=== PATIENT | female | born 1985 | race Caucasian/White ===

== ENCOUNTER 2016-12-04 08:59 | Emergency (ER) | payer MEDICARE, MEDICAID ==
[2016-12-04 09:17] VITALS: BP 129/88
--- NOTE | 2016-12-04 09:26 | ED.PDOC ---
History of Present Illness - General Chief Complaint: Dental/Mouth Stated Complaint: tooth abcess Time Seen by Provider: 12/04/16 09:25 Source: patient Exam Limitations: no limitations - History of Present Illness Initial Comments: Kenia Hardy 31 y/ female seen today with gum swelling and right facial swellin the last 2 days stated teeth hurting. Also had Taken latuda in dali past for her bipolar disorder and teeth gone bad Timing/Duration: yesterday Severity: moderate EENT Location: dental Prearrival Treatment: no prearrival treatment Presenting Symptoms: pain /swelling gums Improving Factors: eating Worsening Factors: nothing Associated Symptoms: denies symptoms Allergies/Adverse Reactions: Allergies Sulfa Antibiotics Allergy (Unknown, Verified 12/04/16 09:18) Home Medications: Ambulatory Orders ALPRAZolam [Xanax] 0.5 mg PO DAILY PRN 12/04/16 Acetamin W/Cod #3 Tab [Tylenol w/CODEINE #3] 1 ea PO Q4HR PRN #14 tab 12/04/16 Amoxicillin [Amoxil] 1,000 mg PO BID #40 cap 12/04/16 Escitalopram Oxalate [Lexapro] 20 mg PO DAILY 12/04/16 Lamotrigine [Lamictal] 200 mg PO BID 12/04/16 Promethazine Tab [Phenergan Tablet] 25 mg PO Q4HWA PRN #10 tab 12/04/16 Thyroid [Nature-Throid] 5 mg PO DAILY 12/04/16 Ziprasidone HCl [Geodon] 40 mg PO BID 12/04/16 Review of Systems - Review of Systems Constitutional: States: no symptoms reported EENTM: States: see HPI Respiratory: States: no symptoms reported Cardiology: States: no symptoms reported Gastrointestinal/Abdominal: States: no symptoms reported Neurological: States: emotional problems - chronic Past Medical History (General) - Patient Medical History Hx Seizures: No Hx Stroke: No Hx Dementia: No Hx Asthma: No Hx of COPD: No Hx Cardiac Disorders: No Hx Congestive Heart Failure: No Hx Pacemaker: No Hx Hypertension: No Hx Thyroid Disease: Yes Hx Diabetes: No Hx Gastroesophageal Reflux: No Hx Renal Disease: No Hx Cancer: No Hx of HIV: No Hx MRSA: No Hx Other PMH: Yes - bipolar Surgical History: other - ,btl - Vaccination History Hx Tetanus, Diphtheria Vaccination: Yes - 2013 Hx Influenza Vaccination: No Hx Pneumococcal Vaccination: No Immunizations Up to Date: Yes - Social History Hx Tobacco Use: Yes Hx Alcohol Use: No Hx Substance Use: No Hx Substance Use Treatment: No Hx Depression: Yes - bipolar ,anxiety - Female History Patient is a Female of Child Bearing Age (10 -59 yrs old): Yes Family Medical History - Family History Father Family History: Unknown Hx Family Cancer: Yes - dad-leukemia,multiple myeloma Hx Family;Other: ca,dm Physical Exam - Physical Exam General Appearance: Alert, Comfortable, No apparent distress Eye Exam: bilateral normal Ear Exam: bilateral ear: auricle normal, canal normal, TM normal Nasal Exam: normal inspection Throat Exam: pharynx normal, dental tenderness - right upper gum with apical abscess, other - multiple decayed teeth Neck: non-tender, normal inspection, trachea midline Cardiovascular/Respiratory: regular rate, rhythm, no M/R/G, normal peripheral pulses, normal breath sounds Abdominal Exam: non-tender, no organomegaly Neurologic: no motor/sensory deficits Progress - Progress Progress: 12/04/16 09:39 Vital Signs - 8 hr 12/04/16 09:11 Temperature 97.4 F L Pulse Rate [ 101 H Left Brachial] Respiratory 20 Rate Blood Pressure 129/88 [Left Arm] O2 Sat by Pulse 94 L Oximetry Departure - Departure Clinical Impression: Acute pulpitis, Apical alveolar abscess Time of Disposition: 09:43 Disposition: Discharge to Home or Self Care Condition: Fair Departure Forms: ED Discharge - Pt. Copy, Patient Portal Self Enrollment Instructions: Tooth Abscess Diet: other - soft diet until better Referrals: CM BUSCH IV, POLISHER HAND [Primary Care Provider] - 1-2 Weeks Prescriptions: Acetamin W/Cod #3 Tab [Tylenol w/CODEINE #3] 1 ea PO Q4HR PRN #14 tab PRN Reason: Pain Amoxicillin [Amoxil] 1,000 mg PO BID #40 cap Promethazine Tab [Phenergan Tablet] 25 mg PO Q4HWA PRN #10 tab PRN Reason: Nausea Home Medications: Ambulatory Orders ALPRAZolam [Xanax] 0.5 mg PO DAILY PRN 12/04/16 Acetamin W/Cod #3 Tab [Tylenol w/CODEINE #3] 1 ea PO Q4HR PRN #14 tab 12/04/16 Amoxicillin [Amoxil] 1,000 mg PO BID #40 cap 12/04/16 Escitalopram Oxalate [Lexapro] 20 mg PO DAILY 12/04/16 Lamotrigine [Lamictal] 200 mg PO BID 12/04/16 Promethazine Tab [Phenergan Tablet] 25 mg PO Q4HWA PRN #10 tab 12/04/16 Thyroid [Nature-Throid] 5 mg PO DAILY 12/04/16 Ziprasidone HCl [Geodon] 40 mg PO BID 12/04/16 Additional Instructions: Follow up with dentist -choices :[facility] [address] [place] [address] phone [phone]; or/ [facility] please refer to phone directory [facility] patient transport -refer to directory or/july
[2016-12-04] MEDS ORDERED: CLINDAMYCIN PHOSPHATE 150 MG/ML VIAL IM ONE (09:39)
[2016-12-04] MEDS ORDERED: CLINDAMYCIN HCL CAP 150 MG CAP PO ONE (09:39)
[2016-12-04] MEDS ORDERED: PROMETHAZINE HCL INJ 25 MG/ML VIAL IM ONE (09:40)
[2016-12-04] MEDS ORDERED: HYDROcodone 10MG/APAP 325MG 1 EA TAB PO ONE (09:41)
[2016-12-04 10:11] VITALS: TEMP 97.6; O2SAT 95
== END 2016-12-04 10:11 | disposition home or self-care (01) ==
LOC: ER 08:59
DX: K04.7 Periapical abscess without sinus (principal); K04.01 Reversible pulpitis; E07.9 Disorder of thyroid, unspecified; F31.9 Bipolar disorder, unspecified; Z88.2 Allergy status to sulfonamides; Z79.899 Other long term (current) drug therapy; Z87.891 Personal history of nicotine dependence
CPT/HCPCS: J2550; J3490

== ENCOUNTER 2017-04-16 00:18 | Emergency (ER) | payer MEDICARE, MEDICAID ==
[2017-04-16 00:41] VITALS: TEMP 98.6
--- NOTE | 2017-04-16 01:00 | RAD ---
EXAM DESCRIPTION: Foot,Left 3 Views CLINICAL HISTORY: 31 years, Female, left lat distal foot pain COMPARISON: None. FINDINGS: There is an oblique comminuted fracture of the distal fifth metatarsal. There is no evidence of articular extension. There is no additional fracture or dislocation. There is soft tissue swelling overlying the fracture. There is no joint effusion. The tarsal, metatarsal, and phalangeal bones are normal in appearance. The intertarsal, tarsometatarsal, metatarsophalangeal, and interphalangeal joints are grossly normal. IMPRESSION: Oblique comminuted fracture of the distal fifth metacarpal with soft tissue swelling. Electronically signed by: Ozzy Lee MD 04/16/2017 12:59 AM [facility] Workstation: [facility] [employer]
[2017-04-16] MEDS ORDERED: HYDROcodone 7.5MG/APAP 325MG 1 EA TAB PO ONE (01:08)
--- NOTE | 2017-04-16 01:16 | ED.PDOC ---
History of Present Illness - General Chief Complaint: Lower Extremity Injury Stated Complaint: fell down stairs and hurt left foot Time Seen by Provider: 04/16/17 00:41 Source: patient Exam Limitations: no limitations - History of Present Illness Initial Comments: The patient is a 31-year-old female presenting secondary to pain in her left lateral distal foot after falling down 3 steps at home. The patient has swelling over the distal fifth metatarsal and some bruising. There is no laceration. Opening and closing the toe appears show good distal alignment. She appears to be neurovascularly intact. Timing/Duration: 1/2 hour Severity: moderate Improving Factors: nothing Worsening Factors: movement Associated Symptoms: denies symptoms Allergies/Adverse Reactions: Allergies Sulfa Antibiotics Allergy (Unknown, Verified 04/16/17 00:36) Home Medications: Ambulatory Orders ALPRAZolam [Xanax] 2 mg PO DAILY PRN 12/04/16 Escitalopram Oxalate [Lexapro] 80 mg PO DAILY 12/04/16 Lamotrigine [Lamictal] 200 mg PO BID 12/04/16 Ziprasidone HCl [Geodon] 80 mg PO BID 12/04/16 Eszopiclone [Lunesta] 3 mg PO BEDTIME PRN 04/16/17 Liothyronine Sodium [Cytomel] 25 mcg PO AC 04/16/17 Tramadol HCl [Ultram] 50 mg PO Q8HR PRN #30 tab 04/16/17 Review of Systems - Review of Systems Constitutional: States: no symptoms reported EENTM: States: no symptoms reported Respiratory: States: no symptoms reported Cardiology: States: no symptoms reported Gastrointestinal/Abdominal: States: no symptoms reported Genitourinary: States: no symptoms reported Musculoskeletal: States: see HPI Skin: States: see HPI Neurological: States: no symptoms reported Endocrine: States: no symptoms reported All other Systems: No Change from Baseline Past Medical History (General) - Patient Medical History Hx Seizures: No Hx Stroke: No Hx Dementia: No Hx Asthma: No Hx of COPD: No Hx Cardiac Disorders: No Hx Congestive Heart Failure: No Hx Pacemaker: No Hx Hypertension: No Hx Thyroid Disease: Yes Hx Diabetes: No Hx Gastroesophageal Reflux: No Hx Renal Disease: No Hx Cancer: No Hx of HIV: No Hx MRSA: No - Vaccination History Hx Tetanus, Diphtheria Vaccination: Yes - 2013 Hx Influenza Vaccination: No Hx Pneumococcal Vaccination: No - Social History Hx Tobacco Use: Yes Hx Alcohol Use: No Hx Substance Use: No Hx Substance Use Treatment: No Hx Depression: Yes - bipolar ,anxiety Family Medical History - Family History Father Family History: Unknown Hx Family Cancer: Yes - dad-leukemia,multiple myeloma Hx Family;Other: ca,dm Physical Exam - Physical Exam General Appearance: Alert, Comfortable, No apparent distress Eye Exam: bilateral normal Ears, Nose, Throat: hearing grossly normal Neck: full range of motion, supple Respiratory: lungs clear, normal breath sounds, no respiratory distress, no accessory muscle use Cardiovascular/Chest: normal peripheral pulses, no edema Peripheral Pulses: radial,right: 2+, radial,left: 2+, dorsalis pedis,right: 2+, dorsalis pedis,left: 2+, posterior tibialis,right: 2+, posterior tibialis,left: 2+ Rectal Exam: deferred Extremity: normal range of motion, no calf tenderness, normal capillary refill, swelling 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 We did do some minor reduction of the fracture site with external pressure. The patient is going to be placed in a walking boot but she has been instructed not to put any weight on it. The patient will use crutches to get around. She needs to follow back up with orthopedics in 3 or 4 days for reevaluation to see if she is going to require additional surgical correction. The patient will be written for tramadol for pain control as needed. Ibuprofen can be used additionally as needed. ER warnings were given. The patient is neurovascularly intact at this time. Departure - Departure Clinical Impression: Fracture of fifth metatarsal bone Qualifiers: Encounter type: initial encounter Fracture type: closed Fracture alignment: displaced Laterality: left Qualified Code(s): S92.352A - Displaced fracture of fifth metatarsal bone, left foot, initial encounter for closed fracture Disposition: Discharge to Home or Self Care Condition: Fair Departure Forms: ED Discharge - Pt. Copy, Patient Portal Self Enrollment Diet: regular diet Activity: no pushing/pulling with affected limb Referrals: CM BUSCH IV DIRECTOR OF ENTERPRISE ARCHITECTURE [Primary Care Provider] - 1-2 Weeks Prescriptions: Tramadol HCl [Ultram] 50 mg PO Q8HR PRN #30 tab PRN Reason: Moderate Pain Home Medications: Ambulatory Orders ALPRAZolam [Xanax] 2 mg PO DAILY PRN 12/04/16 Escitalopram Oxalate [Lexapro] 80 mg PO DAILY 12/04/16 Lamotrigine [Lamictal] 200 mg PO BID 12/04/16 Ziprasidone HCl [Geodon] 80 mg PO BID 12/04/16 Eszopiclone [Lunesta] 3 mg PO BEDTIME PRN 04/16/17 Liothyronine Sodium [Cytomel] 25 mcg PO AC 04/16/17 Tramadol HCl [Ultram] 50 mg PO Q8HR PRN #30 tab 04/16/17 Additional Instructions: the patient's 31-year-old female presenting with a closed distal fifth metatarsal fracture that is fairly comminuted on the left foot. We did do some minor reduction of the fracture site with external pressure. The patient is going to be placed in a walking boot but she has been instructed not to put any weight on it. The patient will use crutches to get around. She needs to follow back up with orthopedics in 3 or 4 days for reevaluation to see if she is going to require additional surgical correction. The patient will be written for tramadol for pain control as needed. Ibuprofen can be used additionally as needed. ER warnings were given. The patient is neurovascularly intact at this time.
[2017-04-16 01:47] VITALS: BP 110/62; O2SAT 97
== END 2017-04-16 01:48 | disposition home or self-care (01) ==
LOC: ER 00:18
DX: S92.352A Displaced fracture of fifth metatarsal bone, left foot, initial encounter for closed fracture (principal); W10.9XXA Fall (on) (from) unspecified stairs and steps, initial encounter; Y92.009 Unspecified place in unspecified non-institutional (private) residence as the place of occurrence of the external cause

== ENCOUNTER 2017-04-17 18:09 | Emergency (ER) | payer MEDICARE, OTHER ==
[2017-04-17] MEDS ORDERED: ONDANSETRON ODT 8 MG TAB SL ONE (18:38)
[2017-04-17] MEDS ORDERED: PROMETHAZINE HCL 25 MG TAB PO ONE (18:38)
[2017-04-17 18:42] VITALS: TEMP 98.1
[2017-04-17] MEDS ORDERED: SODIUM CHLORIDE 0.9% 1000ML 1,000 ML IVS ONE (19:51)
[2017-04-17] MEDS ORDERED: PROMETHAZINE HCL INJ 25 MG in SODIUM CHLORIDE 0.9% 50ML 50 ML IVPB ONE (19:51)
[2017-04-17] MEDS ORDERED: PROMETHAZINE HCL INJ 25 MG/ML VIAL ONE (20:02)
[2017-04-17] MEDS ORDERED: SODIUM CHLORIDE 0.9% 50ML 50 ML ONE (20:02)
[2017-04-17] MEDS ORDERED: ACETAMINOPHEN-CAFF-BUTALBITAL 1 EA TAB PO ONE (20:26)
--- NOTE | 2017-04-17 20:32 | ED.PDOC ---
History of Present Illness - General Chief Complaint: Lower Extremity Injury Stated Complaint: foot pain Time Seen by Provider: 04/17/17 18:13 Source: patient Exam Limitations: no limitations - History of Present Illness Initial Comments: the patient's 31-year-old female but was here a couple of nights ago for a left distal medical tarsal fracture. She was placed in a walking boot with crutches and written for tramadol for pain control. Apparently the patient got tramadol filled today and took a dose and started having nausea and vomiting a few hours later.no fevers. No sore throat or runny nose. No cough. No real abdominal pain. Apparently multiple members of her family have poor tolerances of pain medications. Timing/Duration: 4-6 hours, getting worse Improving Factors: nothing Worsening Factors: nothing Associated Symptoms: malaise, nausea/vomiting Allergies/Adverse Reactions: Allergies Sulfa Antibiotics Allergy (Unknown, Verified 04/17/17 18:42) Home Medications: Ambulatory Orders ALPRAZolam [Xanax] 2 mg PO DAILY PRN 12/04/16 Escitalopram Oxalate [Lexapro] 80 mg PO DAILY 12/04/16 Lamotrigine [Lamictal] 200 mg PO BID 12/04/16 Ziprasidone HCl [Geodon] 80 mg PO BID 12/04/16 Eszopiclone [Lunesta] 3 mg PO BEDTIME PRN 04/16/17 Liothyronine Sodium [Cytomel] 25 mcg PO AC 04/16/17 Tramadol HCl [Ultram] 50 mg PO Q8HR PRN #30 tab 04/16/17 Dmfopdwyfdjcu-Uywe-Igyrzhuwjo [Fioricet] 1 ea PO Q8H PRN #60 tab 04/17/17 Ondansetron [Zofran Odt] 4 mg PO Q4H PRN #10 tab 04/17/17 Review of Systems - Review of Systems Constitutional: States: malaise EENTM: States: no symptoms reported Respiratory: States: no symptoms reported Cardiology: States: no symptoms reported Gastrointestinal/Abdominal: States: nausea, vomiting Genitourinary: States: no symptoms reported Musculoskeletal: States: see HPI Skin: States: no symptoms reported Neurological: States: no symptoms reported Endocrine: States: no symptoms reported All other Systems: No Change from Baseline Past Medical History (General) - Patient Medical History Hx Seizures: No Hx Stroke: No Hx Dementia: No Hx Asthma: No Hx of COPD: No Hx Cardiac Disorders: No Hx Congestive Heart Failure: No Hx Pacemaker: No Hx Hypertension: No Hx Thyroid Disease: Yes Hx Diabetes: No Hx Gastroesophageal Reflux: No Hx Renal Disease: No Hx Cancer: No Hx of HIV: No Hx MRSA: No Surgical History: other - Vaccination History Hx Tetanus, Diphtheria Vaccination: Yes - 2014 Hx Influenza Vaccination: No Hx Pneumococcal Vaccination: No - Social History Hx Tobacco Use: Yes Hx Alcohol Use: No Hx Substance Use: No Hx Substance Use Treatment: No Hx Depression: Yes - bipolar ,anxiety Family Medical History - Family History Father Family History: Unknown Hx Family Cancer: Yes - dad-leukemia,multiple myeloma Hx Family;Other: ca,dm Physical Exam - Physical Exam General Appearance: Alert, Ill Appearing Eye Exam: bilateral normal Ears, Nose, Throat: hearing grossly normal, normal ENT inspection, normal pharynx Neck: full range of motion, supple, normal inspection Respiratory: lungs clear, normal breath sounds, no respiratory distress, no accessory muscle use Cardiovascular/Chest: normal peripheral pulses, regular rate, rhythm, no edema Peripheral Pulses: radial,right: 2+, radial,left: 2+, dorsalis pedis,right: 2+, dorsalis pedis,left: 2+ Gastrointestinal/Abdominal: non tender, soft Rectal Exam: deferred Back Exam: normal inspection, no CVA tenderness Extremity: other - here is bruising over the left distal foot. 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 The patient received Zofran and Phenergan as well as some IV fluids. She is feeling better. The patient will be written for Zofran for as needed use as an outpatient and her tramadol be switched over to Fioricet. Hopefully she will tolerate this better. ER warnings were given for any significant worsening. She does need to keep follow-up with orthopedics on Monday. Departure - Departure Clinical Impression: Adverse effects of medication Qualifiers: Encounter type: initial encounter Qualified Code(s): T88.7XXA - Unspecified adverse effect of drug or medicament, initial encounter Disposition: Discharge to Home or Self Care Condition: Fair Departure Forms: ED Discharge - Pt. Copy, Patient Portal Self Enrollment Instructions: DI for Leg Pain Diet: regular diet Activity: no pushing/pulling with affected limb Referrals: CM BUSCH IV ACCOUNT AUDITOR [Primary Care Provider] - 1-2 Weeks Prescriptions: Judoxqvaxazcg-Kcme-Bkkmrbpuen [Fioricet] 1 ea PO Q8H PRN #60 tab PRN Reason: Pain Ondansetron [Zofran Odt] 4 mg PO Q4H PRN #10 tab PRN Reason: Vomiting Home Medications: Ambulatory Orders ALPRAZolam [Xanax] 2 mg PO DAILY PRN 12/04/16 Escitalopram Oxalate [Lexapro] 80 mg PO DAILY 12/04/16 Lamotrigine [Lamictal] 200 mg PO BID 12/04/16 Ziprasidone HCl [Geodon] 80 mg PO BID 12/04/16 Eszopiclone [Lunesta] 3 mg PO BEDTIME PRN 04/16/17 Liothyronine Sodium [Cytomel] 25 mcg PO AC 04/16/17 Tramadol HCl [Ultram] 50 mg PO Q8HR PRN #30 tab 04/16/17 Jqcxpcwybnwgc-Nzrj-Hhaayslvjf [Fioricet] 1 ea PO Q8H PRN #60 tab 04/17/17 Ondansetron [Zofran Odt] 4 mg PO Q4H PRN #10 tab 04/17/17 Additional Instructions: the patient is a 31-year-old female presenting with nausea and vomiting after having started tramadol for pain control for a fractured fifth metatarsal of the left foot. The patient received Zofran and Phenergan as well as some IV fluids. She is feeling better. The patient will be written for Zofran for as needed use as an outpatient and her tramadol be switched over to Fioricet. Hopefully she will tolerate this better. ER warnings were given for any significant worsening. She does need to keep follow-up with orthopedics on Monday.
[2017-04-17 20:55] VITALS: BP 135/96; O2SAT 99
== END 2017-04-17 20:56 | disposition home or self-care (01) ==
LOC: ER 18:09
DX: R11.2 Nausea with vomiting, unspecified (principal); T40.4X5A Adverse effect of other synthetic narcotics, initial encounter
CPT/HCPCS: A4216; J2550; J7030; Q0169

== ENCOUNTER → 2017-04-21 | Outpatient (CLI) | payer MEDICARE, OTHER ==
--- NOTE | 2017-04-24 08:27 | RAD ---
EXAM DESCRIPTION: Left foot, 3 views CLINICAL HISTORY: M79.642 foot pain. Fracture FINDINGS/ IMPRESSION: Comparison 04/16/2017 Similar appearance of the mildly comminuted fifth metatarsal fracture. Oblique diaphyseal component with transversely oriented metaphyseal component. There is a small angular fracture fragment medially along the proximal margin. The greatest degree of cortical offset is about 6 mm. Dorsal angulation of the dominant fragment best seen on the oblique radiograph No other metatarsal or phalangeal fracture. No advanced arthrosis Electronically signed by: Sean Burgess MD 04/24/2017 8:26 AM [facility]
== END ==
LOC: RAD 08:42
PROVIDERS: ATTEND Orthopaedic Surgery
DX: S92.352D Displaced fracture of fifth metatarsal bone, left foot, subsequent encounter for fracture with routine healing (principal)

== ENCOUNTER → 2017-05-02 | Outpatient (CLI) | payer MEDICARE, OTHER ==
--- NOTE | 2017-05-02 09:21 | RAD ---
EXAM DESCRIPTION: Foot,Left 3 Views CLINICAL HISTORY: 31 years, Female, CLOSED FX OF METATARSAL BONE COMPARISON: Previous study April 21, 2017 TECHNIQUE: AP, lateral, and oblique views of the left foot FINDINGS: Oblique fracture through the distal diaphysis of the left fifth metatarsal is noted with no change in the orientation of the fragments. Another oblique component is seen across the metaphysis. The cap at the fracture site is approximately 3 to 5 mm. Oblique view shows dorsal displacement of 4 mm. Lateral view shows intact talus and calcaneus. Prominent dorsal calcaneal enthesophyte. IMPRESSION: No change in the alignment of distal left fifth metatarsal comminuted fracture. Electronically signed by: Desmond Castellanos MD 05/02/2017 9:20 AM [facility]
== END ==
LOC: RAD 08:07
PROVIDERS: ATTEND Orthopaedic Surgery
DX: S92.302D Fracture of unspecified metatarsal bone(s), left foot, subsequent encounter for fracture with routine healing (principal)

== ENCOUNTER → 2017-05-18 | Outpatient (CLI) | payer MEDICARE, OTHER ==
--- NOTE | 2017-05-18 09:12 | RAD ---
EXAM DESCRIPTION: Foot,Left 3 Views CLINICAL HISTORY: 31 years, Female, FRACTURE OF UNSPECIFIED METATARSAL BONES COMPARISON: None TECHNIQUE: AP, lateral, and oblique views of the left foot FINDINGS: Complex mildly impacted comminuted fracture of the distal half of the left fifth metatarsal is present with oblique component and a transverse component. The major distal fracture fragment is slightly displaced medially and there is slight impaction with overlap. The gap at the fracture site measures 2-4 mm. The degree of overlap is approximately 4 mm. On the oblique view, small cortical fragments are angulated dorsally and medially. No extension of the fracture line into the metatarsal phalangeal joint. Sclerotic linear density across the neck of the fourth metatarsal is seen. This may be an old healed fracture rather than an acute impacted injury. Correlate with physical exam and clinical history. There is no radiopaque foreign body. There is associated overlying soft tissue swelling. Other bones of the foot appear intact. Prominent dorsal calcaneal enthesophyte is present. Degenerative spurring of the dorsal navicular is incidentally noted. IMPRESSION: Complex acute fracture of the distal left fifth metatarsal. Sclerosis of the neck of the fourth metatarsal may be old healed fracture. Electronically signed by: Desmond Castellanos MD 05/18/2017 9:12 AM [employer]
== END ==
LOC: RAD 07:27
PROVIDERS: ATTEND Orthopaedic Surgery
DX: S92.302D Fracture of unspecified metatarsal bone(s), left foot, subsequent encounter for fracture with routine healing (principal)

== ENCOUNTER → 2017-06-23 | Outpatient (CLI) | payer MEDICARE | LOC: RAD 08:45 | PROVIDERS: ATTEND Orthopaedic Surgery | DX: S92.302D Fracture of unspecified metatarsal bone(s), left foot, subsequent encounter for fracture with routine healing (principal); Z01.818 Encounter for other preprocedural examination ==

== ENCOUNTER 2017-06-30 05:54 | Day surgery (SDC) | payer MEDICARE ==
--- NOTE | 2017-06-29 13:46 | HP ---
CHIEF COMPLAINT: Left foot pain. HISTORY OF PRESENT ILLNESS: Kenia is a 31-year-old female with a history of twisting injury to the foot that occurred over 2-1/2 months ago. Unfortunately , she has had no evidence of significant healing on x-ray. Because of the lack of healing, she has requested operative intervention for her delayed union. After discussing the risks, benefits and alternatives to that, the patient has given informed consent. PAST SURGICAL HISTORY: 1. . 2. Tubal ligation. MEDICATIONS: 1. Lamictal. 2. Cytomel. 3. Lexapro. 4. Lunesta. 5. Xanax. ALLERGIES: NO KNOWN DRUG ALLERGIES. CODE STATUS: Full code. IMMUNIZATIONS: Up to date. SOCIAL HISTORY: The patient does not drink or use any illicit drugs. She does smoke. FAMILY HISTORY: None pertinent to today's complaint. REVIEW OF SYSTEMS: Negative except as indicated in the History of Present Illness. PHYSICAL EXAMINATION: VITAL SIGNS: Blood pressure 109/64. Pulse 88. Height 5'5". Weight 188 pounds. MENTAL STATUS: The patient is awake, alert, and is able to give a good history and participate in the physical. The patient is oriented to person, place and time. SKIN: Normal tone and turgor. MUSCULOSKELETAL: She has pretty significant tenderness along the lateral border and distal portion of the fifth metatarsal. She has some minor swelling. Sensation is intact. It is warm and well perfused. She has no other deformities. IMAGING: X-rays show a displaced distal fifth metatarsal fracture. There is no significant bony callus at this time. ASSESSMENT: 1. Delayed union. PLAN: I have talked to her at length about surgical intervention for this. I have also talked to her about the fact that this is not necessarily a cure and that her smoking needs to be ceased. She says she has stopped and promises to continue to refrain from smoking until we see healing. After discussing all these things and the risks, benefits, and alternatives to this, she has given informed consent. #[id number] [facility]
[2017-06-30] MEDS ORDERED: METOCLOPRAMIDE HCL INJ 10 MG/2 ML VIAL ONE (07:00)
[2017-06-30] MEDS ORDERED: LIDOCAINE 1% 10 ML VIAL INJ ONE (07:00)
[2017-06-30] MEDS ORDERED: raNITIdine HCL INJ 25 MG/ML VIAL ONE (07:00)
[2017-06-30] MEDS ORDERED: DEXAMETHASONE INJ 10 MG/ML VIAL ONE (07:00)
[2017-06-30] MEDS ORDERED: PROPOFOL 200 MG/20 ML VIAL IV ONE (07:00)
[2017-06-30] MEDS ORDERED: LACTATED RINGERS 1,000 ML ONE (07:08)
[2017-06-30] MEDS ORDERED: SODIUM CHL 0.9% 100ML MINI-BAG 100 ML IVPB ONE (07:08)
[2017-06-30] MEDS ORDERED: ceFAZolin SODIUM 1 GM VIAL ONE (07:09)
[2017-06-30] MEDS ORDERED: BUPIVACAINE 0.25% INJ 30 ML VIAL INJ ONE ×2 (07:23→08:55)
[2017-06-30] MEDS ORDERED: MIDAZOLAM INJ 2 MG/2 ML VIAL ONE ×2 (07:28→10:04)
--- NOTE | 2017-06-30 08:10 | RAD ---
EXAM DESCRIPTION: Chest,2 Views CLINICAL HISTORY: Preoperative respiratory evaluation COMPARISON: None available FINDINGS: The cardiomediastinal silhouette is unremarkable. There is no airspace consolidation or pleural effusion. The bronchovascular markings are within normal limits, and the lungs are not hyperinflated. There is no pneumothorax or acute fracture. IMPRESSION: Negative exam. Electronically signed by: Angel Bella MD 06/30/2017 8:08 AM CDT
[2017-06-30] MEDS ORDERED: fentaNYL CITRATE INJ 50 MCG/ML AMP ONE (10:04)
[2017-06-30] MEDS ORDERED: ACETAMINOPHEN IV 1000MG 100 ML ONE (10:21)
[2017-06-30] MEDS: LIDOCAINE 1% 50 ML VIAL INJ ONE ×3 (10:43→12:02)
[2017-06-30] MEDS: ceFAZolin SODIUM 1 GM VIAL ONE ×2 (10:52→11:46)
[2017-06-30] MEDS: VANCOMYCIN HCL INJ 1,000 MG VIAL IVPB ONE ×2 (10:52→11:46)
[2017-06-30] MEDS ORDERED: HYDROmorphone HCL INJ 2 MG/ML VIAL ONE (12:24)
[2017-06-30 14:06] VITALS: BP 150/76; TEMP 97.5; O2SAT 94
--- NOTE | 2017-07-01 08:46 | RAD ---
LEFT FOOT HISTORY: POSTOP COMPARISON: June 23, 2017 FINDINGS: Two views of foot demonstrate prior surgical repair along distal aspect of the fifth metatarsal. Intact surgical hardware spanning across minimally displaced fracture. Anatomic bony alignment across the fracture and elsewhere in the foot. No additional fracture nor dislocation nor inflammatory bony erosion is identified. Joint spaces are maintained. Focal soft tissue swelling around the surgical site. IMPRESSION: Unremarkable postsurgical appearance of left fifth metatarsal. Electronically signed by: Servando Madrigal MD 07/01/2017 8:45 AM CDT
--- NOTE | 2017-07-01 14:02 | OP ---
DATE OF PROCEDURE: 06/30/17 PREOPERATIVE DIAGNOSIS: 1. Delayed union fifth metatarsal. POSTOPERATIVE DIAGNOSIS: 1. Delayed union fifth metatarsal. PROCEDURE: 1. Open reduction and internal fixation. SURGEON: Simone Vines M.D. COLOR MAKER: Parish Brambila CST, SA-C. ANESTHESIA: General anesthesia. COMPLICATIONS: None. FINDINGS: Comminuted displaced fifth metatarsal fracture. INDICATION FOR PROCEDURE: Ms. Hardy has a history of a fracture of the fifth metatarsal. She has continued to have pain over the 2-1/2 months without significant evidence of healing. Because of the ongoing pain and failure with significant bone formation, she has requested operative intervention. Given the amount of displacement, that was reasonable as other intervention such as bone stimulator would not likely provide healing. After discussing the risks, benefits, and alternatives to that she has given informed consent for that. DESCRIPTION OF PROCEDURE: The patient was brought to the Operating Room and placed in the supine position. General anesthesia was induced. The patient's leg was sterilely prepped and draped. Following prepping and draping, an incision was made on the dorsolateral border of the foot overlying the nonunion fracture. Dissection was carried down to the fracture site and the intervening fibrous tissue was debrided. Following that, reduction was performed. A compression screw was placed between the 2 largest fragments. The remaining fracture fragments were reduced. Following reduction, the reduction was examined under fluoroscopic imaging. It was shown to be held in good apposition. Seven screws were placed in the plate proximally and medially to hold the fracture in good apposition. Following that, the wound was very thoroughly irrigated and closed. Following closure of the wound, a sterile dressing was placed. The patient was awakened from anesthesia and taken to recovery. POSTOPERATIVE: The patient will be nonweightbearing until we begin to see adequate callous formation. #[id number] [facility]
== END 2017-06-30 13:25 | disposition home or self-care (01) ==
LOC: AMB 05:54
PROVIDERS: ATTEND Orthopaedic Surgery
DX: S92.352G Displaced fracture of fifth metatarsal bone, left foot, subsequent encounter for fracture with delayed healing (principal); E66.9 Obesity, unspecified; Z79.899 Other long term (current) drug therapy
CPT/HCPCS: 01480; 28485; 36415; 71046; 73620; 76000; 80048; 85025; 93005; J0690; J1100; J1170; J2250; J2765; J2780; J3010; J3370; J3490; J7050; J7120

== ENCOUNTER → 2017-07-13 | Outpatient (CLI) | payer MEDICARE ==
--- NOTE | 2017-07-13 17:15 | RAD ---
EXAM DESCRIPTION: Foot,Left 3 Views CLINICAL HISTORY: 31 years, Female, CLOSED FRACTURE OF METATARSAL BONE LEFT COMPARISON: None TECHNIQUE: AP, lateral, and oblique views of the left foot FINDINGS: Plate and screws are seen in the distal left fifth metatarsal with anatomic alignment at the fracture site. Compared to previous study, no change in alignment. Bones of the hindfoot appear intact. Degenerative spurring is seen at the dorsal talonavicular joint and at the dorsal calcaneus. IMPRESSION: Plate and screws in the distal left fifth metatarsal with stable alignment at the fracture site. Electronically signed by: Desmond Castellanos MD 07/13/2017 5:14 PM CDT
== END ==
LOC: RAD 09:37
PROVIDERS: ATTEND Orthopaedic Surgery
DX: S92.302D Fracture of unspecified metatarsal bone(s), left foot, subsequent encounter for fracture with routine healing (principal)

== ENCOUNTER 2017-08-27 20:26 | Emergency (ER) | payer MEDICARE ==
[2017-08-27 20:45] VITALS: TEMP 97.7
[2017-08-27] MEDS ORDERED: SODIUM CHLORIDE 0.9% 1000ML 1,000 ML IVS ONE (21:06)
[2017-08-27] MEDS ORDERED: PROMETHAZINE HCL INJ 25 MG in SODIUM CHLORIDE 0.9% 50ML 50 ML IVPB ONE (21:07)
[2017-08-27] MEDS ORDERED: SODIUM CHLORIDE 0.9% 50ML 50 ML ONE (21:24)
[2017-08-27] MEDS ORDERED: PROMETHAZINE HCL INJ 25 MG/ML VIAL ONE (21:24)
--- NOTE | 2017-08-27 22:05 | ED.PDOC ---
History of Present Illness - General Chief Complaint: GI Problem Stated Complaint: N/V Time Seen by Provider: 08/27/17 21:03 Information Source: patient, Vital Signs reviewed, family Exam Limitations: no limitations - History of Present Illness Initial Comments: c/o vomiting that began earlier today. Her sister had a similar illness recently. Abdominal Pain Onset Location: generalized abdomen Pain Radiation: no radiation Quality: mild Timing/Duration: 4-6 hours Improving Factors: nothing Worsening Factors: nothing Associated Symptoms: denies symptoms - other than weakness, weakness Review of Systems - Review of Systems Constitutional: States: see HPI, weakness EENTM: States: no symptoms reported Respiratory: States: no symptoms reported Cardiology: States: no symptoms reported Gastrointestinal/Abdominal: States: see HPI Genitourinary: States: no symptoms reported Musculoskeletal: States: no symptoms reported Skin: States: no symptoms reported Neurological: States: no symptoms reported Endocrine: States: no symptoms reported Past Medical History (General) - Patient Medical History Hx Seizures: No Hx Stroke: No Hx Dementia: No Hx Asthma: No Hx of COPD: No Hx Cardiac Disorders: No Hx Congestive Heart Failure: No Hx Pacemaker: No Hx Hypertension: No Hx Thyroid Disease: No Hx Diabetes: No Hx Gastroesophageal Reflux: No Hx Renal Disease: No Hx Cancer: No Hx of HIV: No Hx MRSA: No - Vaccination History Hx Tetanus, Diphtheria Vaccination: Yes - 2013 Hx Influenza Vaccination: No Hx Pneumococcal Vaccination: No - Social History Hx Tobacco Use: Yes Hx Alcohol Use: No Hx Substance Use: No Hx Substance Use Treatment: No Hx Depression: Yes - bipolar ,anxiety - Female History Hx Last Menstrual Period: 08/25/17 Family Medical History - Family History Father Family History: Unknown Hx Family Cancer: Yes - dad-leukemia,multiple myeloma Hx Family;Other: ca,dm Physical Exam - Physical Exam General Appearance: Alert, Comfortable, No apparent distress Eyes, Ears, Nose, Throat Exam: other - dry mucosa; pink conjunctiva Neck: supple, normal inspection Respiratory: no respiratory distress, no accessory muscle use Cardiovascular/Chest: regular rate, rhythm, no edema, no JVD Gastrointestinal/Abdominal: non tender, soft, no organomegaly Rectal Exam: deferred Extremity: normal range of motion, normal inspection, no pedal edema Neurologic: alert, normal mood/affect, oriented x 3 Skin Exam: normal color, warm/dry, other - poor turgor Progress - Progress Progress: 08/27/17 22:03 Asymptomatic. Tolerating PO. - Results/Orders Results/Orders: Leukocytosis. I suspect demargination from vomiting. Departure - Departure Clinical Impression: Vomiting Qualifiers: Vomiting type: unspecified Vomiting Intractability: unspecified Nausea presence : with nausea Qualified Code(s): R11.2 - Nausea with vomiting, unspecified Disposition: Discharge to Home or Self Care Departure Forms: ED Discharge - Pt. Copy, Patient Portal Self Enrollment Instructions: DI for Vomiting -- Adult Diet: bland diet Referrals: [facility] FINISHING RANGE OPERATOR [Primary Care Provider] - 08/29/17 (if not better) Prescriptions: Promethazine Tab [Phenergan Tablet] 25 mg PO .Q4H PRN 1 Days #5 tab PRN Reason: Vomiting Home Medications: Ambulatory Orders ALPRAZolam [Xanax] 2 mg PO DAILY PRN 12/04/16 Escitalopram Oxalate [Lexapro] 20 mg PO DAILY 12/04/16 Lamotrigine [Lamictal] 200 mg PO DAILY 12/04/16 Ziprasidone HCl [Geodon] 60 mg PO DAILY 12/04/16 Eszopiclone [Lunesta] 0 mg PO 08/27/17 Promethazine Tab [Phenergan Tablet] 25 mg PO .Q4H PRN 1 Days #5 tab 08/27/17
[2017-08-27] MEDS ORDERED: PROMETHAZINE TAB (ER DISP) 25 MG TAB PO ONE (22:08)
[2017-08-27 22:29] VITALS: O2SAT 97
[2017-08-27 22:30] VITALS: BP 109/71
== END 2017-08-27 22:30 | disposition home or self-care (01) ==
LOC: ER 20:26
DX: R11.2 Nausea with vomiting, unspecified (principal); F31.9 Bipolar disorder, unspecified; F41.9 Anxiety disorder, unspecified; Z87.891 Personal history of nicotine dependence; Z79.899 Other long term (current) drug therapy
CPT/HCPCS: 36415; 80048; 85025; A4216; J2550; J7030; Q0169

== ENCOUNTER → 2017-08-31 | Outpatient (CLI) | payer MEDICARE ==
--- NOTE | 2017-08-31 10:31 | RAD ---
EXAM DESCRIPTION: Foot,Left 3 Views CLINICAL HISTORY: 32 years, Female, FX COMPARISON: None TECHNIQUE: AP, lateral, and oblique views of the left foot FINDINGS: Plate and screws are seen in the distal left fifth metatarsal. Compared to previous study July 13, 2017, configuration is stable. Sclerosis is seen along the fracture line. The fracture line is less well seen than on the previous study consistent with bridging callus formation. Lateral view shows intact talus and calcaneus. Degenerative spurring at the talonavicular joint is prominent. Prominent dorsal calcaneal enthesophyte. IMPRESSION: Plate and screws in the distal left fifth metatarsal. Electronically signed by: Desmond Castellanos MD 08/31/2017 10:30 AM CDT
== END ==
LOC: RAD 08:36
PROVIDERS: ATTEND Orthopaedic Surgery
DX: S92.302D Fracture of unspecified metatarsal bone(s), left foot, subsequent encounter for fracture with routine healing (principal)

== ENCOUNTER → 2017-11-16 | Outpatient (CLI) | payer MEDICARE ==
--- NOTE | 2017-11-16 10:12 | RAD ---
EXAM DESCRIPTION: Foot,Left 3 Views CLINICAL HISTORY: FX OF METATARSAL BONE COMPARISON: Radiographs of the left foot dated 10/27/2017. TECHNIQUE: AP, LATERAL, AND OBLIQUE FINDINGS: The visualized bones appear well mineralized. Comminuted fracture of the distal shaft of the fourth metatarsal is again visualized with no significant interval healing. Stable plate and screw fixation of the distal portion of the fifth metatarsal. Mild soft tissue swelling is noted adjacent to the fifth metatarsal. IMPRESSION: Comminuted fracture of the distal portion of the fourth metatarsal is noted with no significant interval healing. Intact plate and screw fixation of the distal portion of the fifth metatarsal. Electronically signed by: Ada Dye MD 11/16/2017 10:10 AM CDT
== END ==
LOC: RAD 07:50
PROVIDERS: ATTEND Orthopaedic Surgery
DX: S92.355D Nondisplaced fracture of fifth metatarsal bone, left foot, subsequent encounter for fracture with routine healing (principal); S92.345D Nondisplaced fracture of fourth metatarsal bone, left foot, subsequent encounter for fracture with routine healing

== ENCOUNTER → 2017-11-20 | Outpatient (CLI) | payer MEDICARE | LOC: LAB.O 11:34 | PROVIDERS: ATTEND Orthopaedic Surgery | DX: Z01.818 Encounter for other preprocedural examination (principal); E55.9 Vitamin D deficiency, unspecified; S92.355D Nondisplaced fracture of fifth metatarsal bone, left foot, subsequent encounter for fracture with routine healing; S92.345D Nondisplaced fracture of fourth metatarsal bone, left foot, subsequent encounter for fracture with routine healing ==

== ENCOUNTER 2017-11-28 16:08 | Emergency (ER) | payer MEDICARE ==
[2017-11-28] MEDS ORDERED: SODIUM CHLORIDE 0.9% 1000ML 1,000 ML IVS ONE ×2 (16:48→17:50)
[2017-11-28] MEDS ORDERED: ONDANSETRON INJ 4 MG/2 ML VIAL IV ONE (16:48)
[2017-11-28 16:49] VITALS: TEMP 97.2
--- NOTE | 2017-11-28 16:51 | ED.PDOC ---
History of Present Illness - General Chief Complaint: GI Problem Stated Complaint: nausea and pain Time Seen by Provider: 11/28/17 16:48 Information Source: patient, family Exam Limitations: no limitations - History of Present Illness Initial Comments: ppatient comes in today for possible reaction to Bactrim and intractable nausea and vomiting. Patient states on Monday she was sstarted for a sinus infection and staph infection in her nose. Patient was given Bactrim and rifampin that was called in for her to start on Monday. Patient took her first dose on Monday and started feeling ill with nausea. Yesterday she started having worsening nausea and abdominal discomfort and today started having intractable emesis with greater than 7 episodes today. Patient has some abdominal discomfort with cramping and pain in the suprapubic area with the bouts of emesis. No diarrhea. Mom states that this was her reaction the past when she had been on sulfa drugs and she did not realize that the Bactrim was a sulfa medication until she called back with the patient having side effects from this reaction. In the past her reactions have been nausea, emesis, rash but no shortness of breath, wheezing, or intubation necessary. IV fluid and Zofran the past have helped the symptoms resolved. Patient's mom states they have not given steroids for it and today she has some shortness of breath but no wheezing no rash or swelling. Patient has had bilateral removal of tubes for control Abdominal Pain Onset Location: generalized abdomen Pain Radiation: no radiation Quality: moderate, cramping Timing/Duration: 24 hours Improving Factors: nothing Worsening Factors: eating Associated Symptoms: nausea/vomiting, shortness of breath Review of Systems - Review of Systems Constitutional: States: weakness. Denies: chills, diaphoresis, fever EENTM: States: see HPI, nose congestion, throat pain. Denies: eye pain, ear pain, nose pain Respiratory: States: short of breath, other - patient is a smoker . Denies: cough, wheezing Cardiology: States: no symptoms reported. Denies: chest pain, palpitations Gastrointestinal/Abdominal: States: see HPI Genitourinary: States: no symptoms reported Musculoskeletal: States: no symptoms reported Past Medical History (General) - Patient Medical History Hx Seizures: No Hx Stroke: No Hx Dementia: No Hx Asthma: No Hx of COPD: No Hx Cardiac Disorders: No Hx Congestive Heart Failure: No Hx Pacemaker: No Hx Hypertension: No Hx Thyroid Disease: No Hx Diabetes: No Hx Gastroesophageal Reflux: No Hx Renal Disease: No Hx Cancer: No Hx of HIV: No Hx MRSA: No Hx Other PMH: Yes - bipolar disorder - Vaccination History Hx Tetanus, Diphtheria Vaccination: Yes Hx Influenza Vaccination: No Hx Pneumococcal Vaccination: No Immunizations Up to Date: No - Social History Hx Tobacco Use: No Hx Chewing Tobacco Use: No Hx Alcohol Use: No Hx Substance Use: No Hx Substance Use Treatment: No Hx Depression: Yes - bipolar ,anxiety Feels Threatened In Home Enviroment: No Feels Threatened In a Relationship: No Hx Physical Abuse: No Hx Emotional Abuse: No Hx Suspected Abuse: No - Activities of Daily Living Hospice Agency (if applicable):: None - Female History Patient is a Female of Child Bearing Age (10 -59 yrs old): Yes Hx Last Menstrual Period: 08/25/17 Patient : Yes Family Medical History - Family History Father Family History: Unknown Hx Family Cancer: Yes - dad-leukemia,multiple myeloma Hx Family;Other: ca,dm Physical Exam - Physical Exam General Appearance: Ill Appearing Eyes, Ears, Nose, Throat Exam: PERRL/EOMI, TMs normal, pharynx normal, other - no edema, no erythema, tacky mucous membranes Neck: non-tender, full range of motion, supple, normal inspection Respiratory: chest non-tender, lungs clear, normal breath sounds, no respiratory distress Cardiovascular/Chest: normal peripheral pulses, no murmur, tachycardia Gastrointestinal/Abdominal: normal bowel sounds, soft, other - non distended with tenderness to suprapubic area no rebound no guarding. Progress - Progress Progress: 11/28/17 19:14 patient feels much better. tolerating po intake with no abdominal pain. Will stop antibiotics and call PCP in am to decide if further treatment is needed. Sinus irrigation BID with saline - Results/Orders Results/Orders: Laboratory Results WBC 11.7 K/mm3 (4.8-10.8) H 11/28/17 16:50 RBC 5.37 M/mm3 (4.20-5.40) 11/28/17 16:50 Hgb 16.5 gm/dL (12.0-16.0) H 11/28/17 16:50 Hct 48.2 % (36.0-47.0) H 11/28/17 16:50 MCV 89.8 fl (81.0-99.0) 11/28/17 16:50 MCH 30.7 pg (27.0-31.0) 11/28/17 16:50 MCHC 34.2 g/dL (33.0-37.0) 11/28/17 16:50 RDW 12.7 % (11.5-14.5) 11/28/17 16:50 Plt Count 548 K/mm3 (130-400) H 11/28/17 16:50 MPV 6.4 fl (7.40-10.4) L 11/28/17 16:50 Absolute Neuts (auto) 9.40 K/uL (1.8-6.8) H 11/28/17 16:50 Absolute Lymphs (auto) 1.70 K/uL (1.0-3.4) 11/28/17 16:50 Absolute Monos (auto) 0.50 K/uL (0.2-0.8) 11/28/17 16:50 Absolute Eos (auto) 0.10 K/uL (0.0-0.4) 11/28/17 16:50 Absolute Basos (auto) 0.10 K/uL (0.0-0.1) 11/28/17 16:50 Neutrophils % 79.9 % (42.0-78.0) H 11/28/17 16:50 Lymphocytes % 14.7 % (20.0-50.0) L 11/28/17 16:50 Monocytes % 4.1 % (2.0-9.0) 11/28/17 16:50 Eosinophils % 0.7 % (1.0-5.0) L 11/28/17 16:50 Basophils % 0.6 % (0.0-2.0) 11/28/17 16:50 Sodium 140 mmol/L (135-145) 11/28/17 16:50 Potassium 4.2 mmol/L (3.6-5.0) 11/28/17 16:50 Chloride 107 mmol/L (101-111) 11/28/17 16:50 Carbon Dioxide 17 mmol/L (21-31) L 11/28/17 16:50 Anion Gap 20.2 (12-18) H 11/28/17 16:50 BUN 15 mg/dL (7-18) 11/28/17 16:50 Creatinine 0.98 mg/dL (0.6-1.3) 11/28/17 16:50 BUN/Creatinine Ratio 15.3 (10-20) 11/28/17 16:50 Random Glucose 147 mg/dL (70-105) H 11/28/17 16:50 Serum Osmolality 282.9 mOsm/L (275-295) 11/28/17 16:50 Calcium 10.2 mg/dL (8.4-10.2) 11/28/17 16:50 Total Bilirubin 0.5 mg/dL (0.2-1.0) 11/28/17 16:50 AST 27 IU/L (10-42) 11/28/17 16:50 ALT 20 IU/L (10-60) 11/28/17 16:50 Alkaline Phosphatase 111 IU/L (42-121) 11/28/17 16:50 Serum Total Protein 8.7 gm/dL (6.4-8.2) H 11/28/17 16:50 Albumin 4.8 g/dl (3.2-5.5) 11/28/17 16:50 Globulin 3.9 gm/dL (2.3-3.5) H 11/28/17 16:50 Albumin/Globulin Ratio 1.2 (1.1-1.9) 11/28/17 16:50 Amylase 36 U/L (28-100) 11/28/17 16:50 Lipase 27 U/L (22-51) 11/28/17 16:50 Urine Color Yellow (Yellow) 11/28/17 18:51 Urine Appearance Sl cloudy (Clear) 11/28/17 18:51 Urine pH 6.5 (4.5-7.8) 11/28/17 18:51 Ur Specific [place] 1.020 (1.005-1.030) 11/28/17 18:51 Urine Protein Negative mg/dL 11/28/17 18:51 Urine Glucose (UA) Negative mg/dL (Negative) 11/28/17 18:51 Urine Ketones 15 mg/dL (NEGATIVE) H 11/28/17 18:51 Urine Blood Negative (Negative) 11/28/17 18:51 Urine Nitrite Negative 09/18/18 18:51 Urine Bilirubin Small (NEGATIVE) H 11/28/17 18:51 Urine Urobilinogen 1.0 mg/dL (0.2-1.0) 11/28/17 18:51 Ur Leukocyte Esterase Trace (Negative) H 11/28/17 18:51 Urine RBC 0-1 /hpf 11/28/17 18:51 Urine WBC 1-3 /hpf 11/28/17 18:51 Ur Epithelial Cells 3-5 /hpf 11/28/17 18:51 Amorphous Sediment 3+ 11/28/17 18:51 Urine Bacteria 1+ 11/28/17 18:51 Urine Mucus Small 11/28/17 18:51 - EKG/XRAY/CT CT Ordered: No CT Interpretation Call Back: No Departure - Departure Clinical Impression: Vomiting Qualifiers: Vomiting type: unspecified Vomiting Intractability: intractable Nausea presence : with nausea Qualified Code(s): R11.2 - Nausea with vomiting, unspecified Adverse effects of medication Qualifiers: Encounter type: initial encounter Qualified Code(s): T50.905A - Adverse effect of unspecified drugs, medicaments and biological substances, initial encounter Disposition: Discharge to Home or Self Care Departure Forms: ED Discharge - Pt. Copy, Patient Portal Self Enrollment Diet: bland diet Referrals: CM BUS[facility] IV SUPPORT ARCHITECT [Primary Care Provider] - 1-2 Weeks Home Medications: Ambulatory Orders ALPRAZolam [Xanax] 2 mg PO DAILY PRN 12/04/16 Escitalopram Oxalate [Lexapro] 20 mg PO DAILY 12/04/16 Lamotrigine [Lamictal] 200 mg PO DAILY 12/04/16 Ziprasidone HCl [Geodon] 60 mg PO DAILY 12/04/16 Eszopiclone [Lunesta] 0 mg PO 08/27/17 Promethazine Tab [Phenergan Tablet] 25 mg PO .Q4H PRN 1 Days #5 tab 08/27/17 Acetamin W/Cod #3 Tab [Tylenol w/CODEINE #3] 1 ea PO TID PRN #14 tab 10/23/17 Additional Instructions: stop antibiotics and call PCP in am to decide if further treatment is needed. Sinus irrigation BID with saline
[2017-11-28] MEDS ORDERED: PROMETHAZINE HCL INJ 25 MG in SODIUM CHLORIDE 0.9% 50ML 50 ML IVPB ONE (17:50)
[2017-11-28] MEDS ORDERED: PROMETHAZINE HCL INJ 25 MG/ML VIAL ONE (17:51)
[2017-11-28] MEDS ORDERED: SODIUM CHLORIDE 0.9% 100ML 100 ML IVPB ONE (17:52)
[2017-11-28 18:36] VITALS: O2SAT 97
[2017-11-28 19:44] VITALS: BP 115/58
== END 2017-11-28 19:44 | disposition home or self-care (01) ==
LOC: ER 16:08
DX: R11.2 Nausea with vomiting, unspecified (principal); T37.0X5A Adverse effect of sulfonamides, initial encounter; F31.9 Bipolar disorder, unspecified; F41.9 Anxiety disorder, unspecified
CPT/HCPCS: 36415; 80053; 81001; 82150; 83690; 85025; J2405; J2550; J7030; J7050

== ENCOUNTER → 2017-12-21 | Outpatient (CLI) | payer MEDICARE ==
--- NOTE | 2017-12-21 17:46 | RAD ---
EXAM DESCRIPTION: Foot,Left 3 Views CLINICAL HISTORY: CLOSED FRACTURE OF METATARSAL BONE LEFT COMPARISON: 16 November 2017 TECHNIQUE: 3 views left FINDINGS: The examination demonstrates prior ORIF of the distal fifth metacarpal fracture. There is subacute fracturing proximal to the ORIF site. A fracture of the distal fourth metacarpal is observed. Callus formation is observed at the fracture site. Mild diffuse osteopenia is observed. No new fractures are detected. IMPRESSION: Fractures of the fourth and fifth metacarpals are observed unchanged from the prior exam. Electronically signed by: Fritz Roberson MD 12/21/2017 5:44 PM CDT
== END ==
LOC: RAD 09:40
PROVIDERS: ATTEND Orthopaedic Surgery
DX: S92.355D Nondisplaced fracture of fifth metatarsal bone, left foot, subsequent encounter for fracture with routine healing (principal)